=== PATIENT | female | born 2000 | race Caucasian/White ===

== ENCOUNTER 2021-07-08 10:18 | Emergency (ER) | payer OTHER ==
[2021-07-08] MEDS ORDERED: Ondansetron PF 4 MG/2 ML Vial ONE ×2 (11:28→15:08)
[2021-07-08 11:34] LABS: Hemoglobin 14.8 g/dL (12.0-15.5); Mean Corpuscular HGB CONC 33.7 g/dL (32.0-36.0); Mean Corpuscular Hemoglobin 31.4 pg (27.0-33.0); Platelet Count 421 10x3/uL (150-450); RBC Distribution Width 12.3 % (11.5-14.5); Red Blood Cell (RBC) Count 4.72 10x6/uL (3.90-5.03)
[2021-07-08 11:38] LABS: BHCG - Serum Negative (NEGATIVE); Pregs Control Background? CLEAR/WHITE (CLR/WHITE); Pregs Control Bar Appear? YES (CONTROL BAR)
[2021-07-08 11:45] LABS: ALT (SGPT) 34 U/L (8-55); AST (SGOT) 21 U/L (5-34); Albumin 4.7 g/dL (3.5-5.0); Alkaline Phosphatase 65 U/L (40-110); Anion Gap 14 mmol/L (10-20); BUN (Urea Nitrogen) 13 mg/dL (7.0-18.7); Bilirubin, Total 1.3 mg/dL (0.2-1.2); Calc. Creatinine Clearance 0 mL/min (70-130); Calcium 9.6 mg/dL (7.8-10.44); Carbon Dioxide 20 mmol/L (22-29); Chloride 108 mmol/L (98-107); Globulin 3.4 g/dL (2.4-3.5); Glucose 122 mg/dL (70-105); Lipase 14 U/L (8-78); Protein, Total 8.1 g/dL (6.0-8.3); Sodium 138 mmol/L (136-145)
[2021-07-08 12:03] LABS: Bilirubin 1+ (Negative); Blood, Urine 25 (Negative); Clarity Slightly Cloudy (Clear); Glucose, Urine (Dipstick) Normal (Negative); Ketone, Urine Negative (Negative); Leukocyte Negative (Negative); Nitrite Negative (Negative); Protein, Urine (Dipstick) 15 mg/dl (Neg-Trace); Specific Gravity, Urine 1.015 (1.002-1.036); Urobilinogen Normal mg/dL (Less than 2)
[2021-07-08 12:03] LABS: Band 1 % (5-11); Lymphocytes 7 % (21-51); Monocytes 3 % (0-10); Neutrophil 89 % (42-75)
[2021-07-08] MEDS ORDERED: Promethazine HCl 25 MG/ML VIAL ONE (12:03)
[2021-07-08 12:04] LABS: MDiff Complete? YES
[2021-07-08 12:05] LABS: Platelet Morphology Comment Appears Adequate; RBC Morphology Normal
[2021-07-08 12:14] LABS: Bacteria/HPF 2+ HPF (None Seen); WBC/HPF 0-3 HPF (0-3)
[2021-07-08 12:15] LABS: Mucous/LPF Rare LPF (<2+)
== END 2021-07-08 17:32 | disposition home or self-care (01) ==
LOC: CSHERS 10:18
DX: E86.0 Dehydration (principal); R11.2 Nausea with vomiting, unspecified; R19.7 Diarrhea, unspecified; R00.0 Tachycardia, unspecified; Z79.899 Other long term (current) drug therapy
CPT/HCPCS: 80053; 81003; 81015; 83690; 84703; 85025; 96365; 96375; 96376; J2405; J2550